=== PATIENT | female | born 1985 | race Caucasian/White ===

== ENCOUNTER → 2017-01-25 | Outpatient (REF) | payer OTHER ==
[2017-01-25 17:33] LABS: ALBUMIN 4.1 GM/DL (3.2-5.2); ALBUMIN/GLOBULIN RATIO 1.28 (1.00-1.93); ALKALINE PHOSPHATASE 72 U/L (45-117); ALT/SGPT 20 U/L (12-78); ANION GAP 7 MEQ/L (8-16); AST/SGOT 6 U/L (7-37); BILIRUBIN,TOTAL 0.3 MG/DL (0.2-1.0); BLOOD UREA NITROGEN 7 MG/DL (7-18); CALCIUM LEVEL 9.3 MG/DL (8.5-10.1); CARBON DIOXIDE LEVEL 29 MEQ/L (21-32); CHLORIDE LEVEL 104 MEQ/L (98-107); CHOLESTEROL LEVEL 165 MG/DL (<200); CREATININE FOR GFR 1.02 MG/DL (0.55-1.02); GLOMERULAR FILTRATION RATE > 60.0 (>60); GLUCOSE, FASTING 88 MG/DL (70-105); SODIUM LEVEL 140 MEQ/L (136-145); TOTAL PROTEIN 7.3 GM/DL (6.4-8.2); TRIGLYCERIDES LEVEL 71 MG/DL (<150)
[2017-01-25 17:36] LABS: BASO % 0.4 % (0.0-1.0); EOS # 0.2 10^3/uL (0.0-0.50); IMMATURE GRANULOCYTE % 0.4 % (0-0); LYMPH # 2.7 10^3/uL (1.5-4.5); MEAN CORPUSCULAR HEMOGLOBIN 28.2 pg (27.0-33.0); MEAN CORPUSCULAR HGB CONC 31.4 g/dl (32.0-36.5); MEAN CORPUSCULAR VOLUME 89.8 fl (80.0-96.0); MONO # 0.5 10^3/uL (0.0-0.8); MONO % 5.2 % (0.0-5.0); NEUTROPHILS # 6.6 10^3/uL (1.8-7.7); PLATELET COUNT, AUTOMATED 319 10^3/uL (150-450); RED CELL DISTRIBUTION WIDTH 14.2 % (11.5-14.5); WHITE BLOOD COUNT 10.1 10^3/uL (4.0-10.0)
== END ==
LOC: M LAB REF 16:04
PROVIDERS: ATTEND Nurse Practitioner Adult Health
DX: Z13.9 Encounter for screening, unspecified (principal)

== ENCOUNTER → 2017-02-23 | Outpatient (REF) | payer OTHER | LOC: M LAB REF 16:49 | PROVIDERS: ATTEND Advanced Practice Midwife | DX: Z12.4 Encounter for screening for malignant neoplasm of cervix (principal); R87.5 Abnormal microbiological findings in specimens from female genital organs; Z11.3 Encounter for screening for infections with a predominantly sexual mode of transmission ==

== ENCOUNTER → 2017-03-24 | Outpatient (CLI) | payer OTHER ==
[2017-03-24 11:46] LABS: CONTROL LINE HCG INT CTR LINE PRESENT; HCG, SERUM QUALITATIVE NEGATIVE (NEGATIVE)
== END ==
LOC: M LAB 11:13
DX: N91.2 Amenorrhea, unspecified (principal)
CPT/HCPCS: 84703

== ENCOUNTER → 2017-04-01 | Outpatient (REF) | payer OTHER | LOC: M LAB REF 13:08 | DX: N94.12 Deep dyspareunia (principal) ==

== ENCOUNTER → 2017-04-07 | Outpatient (CLI) | payer OTHER | LOC: M RAD 17:05 | DX: N94.12 Deep dyspareunia (principal); N83.201 Unspecified ovarian cyst, right side | CPT/HCPCS: 76856 ==

== ENCOUNTER 2018-01-09 19:55 | Emergency (ER) | payer OTHER ==
[2018-01-09] MEDS: NORCO 5/325MG TABLET (BULK FOR ED) PO (20:02)
== END 2018-01-09 20:06 | disposition home or self-care (01) ==
LOC: M ED 19:55
DX: K02.9 Dental caries, unspecified (principal); Z72.0 Tobacco use; Z79.899 Other long term (current) drug therapy
CPT/HCPCS: 99282

== ENCOUNTER 2018-05-19 07:25 | Emergency (ER) | payer OTHER ==
[~2018-05-19] VITALS: Ht 175.3 cm; Wt 92.5 kg
[~2018-05-19 07:25] MED LIST: CLINDAMYCIN; NAPR250T4 PO
[2018-05-19] MEDS ORDERED: VIT D (07:34)
[2018-05-19 08:06] LABS: BASO % 0.3 % (0.0-1.0); EOS # 0.2 10^3/uL (0.0-0.50); EOS % 1.4 % (0.0-3.0); HEMATOCRIT 42.2 % (36.0-47.0); LYMPH # 2.8 10^3/uL (1.5-4.5); LYMPH % 23.6 % (24.0-44.0); MEAN CORPUSCULAR HEMOGLOBIN 29.9 pg (27.0-33.0); MEAN CORPUSCULAR HGB CONC 33.2 g/dl (32.0-36.5); MONO # 0.9 10^3/uL (0.0-0.8); MONO % 7.6 % (0.0-5.0); NEUTROPHILS % 66.6 % (36.0-66.0); PLATELET COUNT, AUTOMATED 261 10^3/uL (150-450); RED BLOOD COUNT 4.69 10^6/uL (4.00-5.40); WHITE BLOOD COUNT 12.1 10^3/uL (4.0-10.0)
--- NOTE | 2018-05-19 09:12 | REP ---
FIRST TRIMESTER ULTRASOUND: Real-time sonographic evaluation is performed of the pelvis, using transabdominal and endovaginal technique. The uterus measures 9.9 x 5.9 x 6.9 cm. There is endometrial thickening up to 3.6 cm. Sac-like structure in the endometrial canal measures 6 mm in average diameter, which would correspond to an estimated gestational age of 5 weeks 2 days. No pole or yolk sac is seen within this sac. Right ovary measures 4.6 x 3.0 x 4.0 cm. There is a complex cystic structure in the right ovary 2.2 cm in diameter which may represent a complex corpus luteum. The left ovary measures 2.7 x 2.1 x 2.0 cm. There is no other evidence of adnexa mass. There is trace free fluid. Differential diagnosis would include very early intrauterine gestation, missed or ectopic . Suggest correlation with serial quantitative beta hCG valves and followup ultrasound as necessary. Electronically Signed by Cesar Rodríguez MD 05/22/2018 10:54 A
[2018-05-19] MEDS ORDERED: MICOCRE PV (09:53)
[2018-05-19] MEDS ORDERED: MACR100C43 PO (09:53)
[2018-05-19 09:57] LABS: CHLAMYDIA DNA AMPLIFICATION NEGATIVE (NEGATIVE); GC DNA AMPLIFICATION NEGATIVE (NEGATIVE)
[2018-05-19 10:12] VITALS: BP 107/54
== END 2018-05-19 10:13 | disposition home or self-care (01) ==
LOC: M ED 07:25
DX: Z32.01 Encounter for pregnancy test, result positive (principal); N39.0 Urinary tract infection, site not specified; B37.3 Candidiasis of vulva and vagina; F17.200 Nicotine dependence, unspecified, uncomplicated; Z88.0 Allergy status to penicillin; Z98.890 Other specified postprocedural states

== ENCOUNTER → 2018-05-26 | Outpatient (CLI) | payer OTHER ==
[~2018-05-26] MED LIST changes: +MACR100C43 PO; +MICOCRE PV; +VIT D
== END ==
LOC: M SMT 11:41
PROVIDERS: ATTEND Advanced Practice Midwife
DX: O20.0 Threatened abortion (principal)

== ENCOUNTER 2018-06-20 16:42 | Emergency (ER) | payer OTHER ==
[~2018-06-20] VITALS: Ht 175.3 cm; Wt 95.1 kg
[2018-06-20 16:43] VITALS: BP 105/60
[2018-06-20] MEDS ORDERED: PREN200C PO (17:09)
== END 2018-06-20 21:31 | disposition left against medical advice (07) ==
LOC: M ED 16:42
DX: Z53.21 Procedure and treatment not carried out due to patient leaving prior to being seen by health care provider (principal)

== ENCOUNTER → 2018-07-27 | Outpatient (REF) | payer OTHER ==
[~2018-07-27] MED LIST changes: +PREN200C PO
== END ==
LOC: M LAB REF 17:09
PROVIDERS: ATTEND Advanced Practice Midwife
DX: O09.522 Supervision of elderly multigravida, second trimester (principal); Z3A.00 Weeks of gestation of pregnancy not specified

== ENCOUNTER → 2018-08-24 | Outpatient (CLI) | payer OTHER ==
--- NOTE | 2018-08-25 09:03 | REP ---
Obstetric sonography: History: Supervision of . anatomy. Findings: Scanning through the gravid uterus demonstrates a viable single intrauterine gestation in a cephalic lie. motion is observed and heart rate is recorded at 131 beats per minute. Placenta is anterior grade 1 without evidence of previa or abruption. Amniotic fluid is subjectively normal. Closed cervical length measured transabdominally is 4.7 cm. No extrauterine abnormalities observed. Umbilical cord is seen draping across shoulders. No abnormality is observed. spine visualization and nose and lips visualization was less than optimally achieved due to position. Following additional anatomic structures are identified and felt to be sonographically unremarkable: cranium, choroid plexus, cavum, cerebellum posterior fossa, lungs, four-chamber heart with left and right ventricular outflow tract views, diaphragm, left-sided stomach, abdominal wall cord insertion, three-vessel umbilical cord, kidneys and bladder, upper and lower extremities. Biometry chart: BPD 4.0 cm 18 weeks 1 day Head circumference 15.8 cm 18 weeks 5 days Abdominal circumference 13.3 cm 18 weeks 5 days Femur length 3.0 cm 19 weeks 1 day Humeral length 2.8 cm 18 weeks 6 days HC/AC ratio normal 1.19, cephalic index 0.68 (0.70-0.86) estimated weight 262 grams, 0 pounds 9 ounces, 39th percentile for 19 weeks 1 day. Impression: Viable single intrauterine gestation 18 weeks 5 days by today's composite sonographic criteria. MARYANNE by today's sonography January 20, 2019. nose and lips and spine visualization were less than optimal due to position. Electronically Signed by Simeon Jefferson MD 08/25/2018 03:01 P
== END ==
LOC: M RAD 17:52
PROVIDERS: ATTEND Advanced Practice Midwife
DX: Z34.82 Encounter for supervision of other normal pregnancy, second trimester (principal)

== ENCOUNTER → 2018-11-03 | Outpatient (CLI) | payer OTHER ==
[2018-11-03 13:18] LABS: HEMATOCRIT 35.9 % (36.0-47.0); HEMOGLOBIN 11.8 g/dl (12.0-15.5); MEAN CORPUSCULAR HEMOGLOBIN 30.7 pg (27.0-33.0); MEAN CORPUSCULAR HGB CONC 32.9 g/dl (32.0-36.5); MEAN CORPUSCULAR VOLUME 93.5 fl (80.0-96.0); PLATELET COUNT, AUTOMATED 238 10^3/uL (150-450); RED BLOOD COUNT 3.84 10^6/uL (4.00-5.40); WHITE BLOOD COUNT 12.3 10^3/uL (4.0-10.0)
== END ==
LOC: M SMT 10:53
PROVIDERS: ATTEND Specialist
DX: Z34.82 Encounter for supervision of other normal pregnancy, second trimester (principal); Z3A.00 Weeks of gestation of pregnancy not specified

== ENCOUNTER → 2018-11-07 | Outpatient (CLI) | payer OTHER | LOC: M LAB 07:40 | PROVIDERS: ATTEND Specialist | DX: Z34.83 Encounter for supervision of other normal pregnancy, third trimester (principal); Z3A.00 Weeks of gestation of pregnancy not specified ==

== ENCOUNTER → 2018-12-11 | Outpatient (CLI) | payer OTHER ==
--- NOTE | 2018-12-11 20:21 | REP ---
Third trimester obstetric ultrasound: There is a single intrauterine N. There is movement and cardiac activity. The heart rate is 126 beats per minute. The placenta is anterior. There is no placenta previa or abruptio. The placenta is grade II. The amniotic fluid volume subjectively is normal. The amniotic fluid index is 10.7/8.0 - 24.9. Gestational age by today's ultrasound is 34 weeks 2 days/MARYANNE 01/20/2019. Gestational age by the first ultrasound is 34 weeks 2 days/MARYANNE 01/20/2019. Gestational age by LMP is 34 weeks 5 days/MARYANNE 01/17/2019. weight is 2445 grams/5 pounds, 6 ounces. This is the 44th percentile for 34 weeks 5 days. anatomy: On the combination of the two previous studies dated 08/24/2018 and 10/03/2018. All of the anatomy was previously visualized and was previously normal. On the study today, because of the gestational age, where only able to visualize the cranium, choroid plexus, cavum septum pellucidum, cerebellum, diaphragm, stomach, kidneys, bladder and spine. All of the structures are normal. The remainder of the anatomy was previously visualized and previously unremarkable. Umbilical cord Doppler assessment: S/D ratio 2.70 (2.30-3.30) Resistive Index 0.64 (0.59-0.75 Diastolic Velocity 17.2 (>10 cm/sec) Electronically Signed by Cesar Escobar MD 12/11/2018 08:12 P
== END ==
LOC: M RAD 16:43
PROVIDERS: ATTEND Obstetrics & Gynecology
DX: O24.410 Gestational diabetes mellitus in pregnancy, diet controlled (principal); Z3A.34 34 weeks gestation of pregnancy

== ENCOUNTER → 2018-12-18 | Outpatient (CLI) | payer OTHER ==
[~2018-12-18] MED LIST changes: +BUSPIRONE PO; +GLYB1TAB65 PO; +RANITIDINE PO; +SERT25TA85 PO; +[UNRECOGNIZED DRUG - OTHER] PO
--- NOTE | 2018-12-19 07:08 | REP ---
The third trimester obstetric ultrasound for well being: There is a single intrauterine gestation in a vertex presentation. The heart rate is 133 beats per minute. Gestational age by the first ultrasound is 35 weeks 2 days/MARYANNE 01/20/2019. Gestational age by LMP is 35 weeks 5 days/MARYANNE 01/17/2019. The amniotic fluid volume subjectively is oligohydramnios. The amniotic fluid index is 5.6 (7.8 - 24.9). biophysical profile: Breathing 2.0 Movement 2.0 Tone 2.0 AFV 2.0 Total 8.0 / 8.0 Impression: Oligohydramnios. Electronically Signed by Cesar Escobar MD 12/18/2018 02:58 P
== END ==
LOC: M RAD 14:00
PROVIDERS: ATTEND Advanced Practice Midwife
DX: O24.410 Gestational diabetes mellitus in pregnancy, diet controlled (principal)

== ENCOUNTER 2018-12-28 07:55 | Inpatient (IN) | payer OTHER ==
[2018-12-28] VITALS (8 sets, daily range): BP systolic 98–116; BP diastolic 55–67
[~2018-12-28] VITALS: Ht 175.3 cm; Wt 109.6 kg
[~2018-12-28 07:55] MED LIST changes: -BUSPIRONE PO; -GLYB1TAB65 PO; -RANITIDINE PO; -SERT25TA85 PO; -[UNRECOGNIZED DRUG - OTHER] PO
[2018-12-28] MEDS ORDERED: GLYB2.5T13 PO (08:25)
[2018-12-28] MEDS ORDERED: [UNRECOGNIZED DRUG - OTHER] PO (08:25)
[2018-12-28] MEDS ORDERED: RANITIDINE PO (08:25)
[2018-12-28] MEDS ORDERED: BUSPIRONE PO (08:25)
[2018-12-28] MEDS ORDERED: SERT25TA85 PO (08:25)
[2018-12-28] MEDS ORDERED: LACTATED RINGER'S 1000 ML IV STA (08:49)
[2018-12-28] MEDS ORDERED: LR 1,000 ML IV SCH (08:49)
[2018-12-28] MEDS ORDERED: INSULIN HUMAN REGULAR 100 UNITS in NS 99 ML IV SCH ×2 (09:00→15:00)
[2018-12-28 09:30] LABS: HEMATOCRIT 36.8 % (36.0-47.0); HEMOGLOBIN 11.7 g/dl (12.0-15.5); MEAN CORPUSCULAR HEMOGLOBIN 28.6 pg (27.0-33.0); MEAN CORPUSCULAR HGB CONC 31.8 g/dl (32.0-36.5); PLATELET COUNT, AUTOMATED 263 10^3/uL (150-450); RED BLOOD COUNT 4.09 10^6/uL (4.00-5.40); WHITE BLOOD COUNT 10.1 10^3/uL (4.0-10.0)
[2018-12-28] MEDS: miSOPROStol 50 MCG 1/2 TAB (S0191) SL SCH ×3 (10:18→21:17)
[2018-12-28] MEDS: NS 1,000 ML IV SCH (13:36)
[2018-12-28] MEDS: INSULIN HUMAN REGULAR 100 UNITS in NS 99 ML IV SCH (14:52)
[2018-12-28] MEDS ORDERED: OXYTOCIN 30 UNITS IN 0.9% NaCl 500ML IV BAG (J2590) As Ordered ONE (14:57)
[2018-12-28] MEDS: INSULIN IV RATE CHANGE DOCUMENTATION ML/HR XX SCH ×2 (15:32→19:25)
[2018-12-29] VITALS (35 sets, daily range): BP systolic 96–134; BP diastolic 53–86
[2018-12-29] MEDS: miSOPROStol 50 MCG 1/2 TAB (S0191) SL SCH ×2 (01:44→07:10)
[2018-12-29] MEDS: NS 1,000 ML IV SCH ×2 (05:26→14:54)
--- NOTE | 2018-12-29 08:11 | IPNPDOC ---
Text Note Date of Service The patient was seen on 12/29/18. NOTE Comfortable at present Miso #5 given 0710 UC irregular, mild FH 130, Cat I SVE 2/50/-3, Cooks catheter 60/40 inserted. Start pitocin after 4 hrs VS,Fishbone, I+O VS, Fishbone, I+O Laboratory Tests 12/28/18 09:19 Vital Signs Date Time Temp Pulse Resp B/P (MAP) Pulse Ox O2 Delivery O2 Flow Rate FiO2 12/29/18 07:19 98.8 68 18 109/72 (84) I&O- Last 24 Hours up to 6 AM 12/29/18 06:00 Intake Total 2120 ml Output Total 2750 ml Balance -630 ml Madeline Brice CNM Dec 29, 2018 08:11
[2018-12-29] MEDS: INSULIN HUMAN REGULAR 100 UNITS in NS 99 ML IV SCH ×3 (09:33→18:31)
[2018-12-29] MEDS ORDERED: PROMETHAZINE INJ 25 MG/ML VIAL (J2550) IV ONE (10:15)
[2018-12-29] MEDS ORDERED: BUTORPHANOL 2 MG/ML INJ (J0595) IV ONE (10:15)
[2018-12-29] MEDS ORDERED: LR 1,000 ML IV SCH (13:17)
[2018-12-29] MEDS ORDERED: OXYTOCIN DRIP 30 UNITS in IV 1 EA IV SCH (13:30)
--- NOTE | 2018-12-29 13:31 | IPNPDOC ---
Text Note Date of Service The patient was seen on 12/29/18. NOTE Bulb out in toilet, moderate bloody show FH 125, Cat I UC Q 5 minutes, mild SVE /-3 Start pitocin. Pt plans epidural Anticipate NSVB VS,Fishbone, I+O VS, Fishbone, I+O Vital Signs Date Time Temp Pulse Resp B/P (MAP) Pulse Ox O2 Delivery O2 Flow Rate FiO2 12/29/18 11:01 98.6 74 16 111/74 (86) I&O- Last 24 Hours up to 6 AM 12/29/18 06:00 Intake Total 2120 ml Output Total 2750 ml Balance -630 ml Madeline Brice CNM Dec 29, 2018 13:31
[2018-12-29] MEDS ORDERED: FENTANYL 2MCG/ML ROPIVACAINE 0.2% IN 0.9% NACL 100ML IVBAG As Ordered ONE (20:04)
[2018-12-29] MEDS ORDERED: NALOXONE INJ 0.4 MG/1 ML VIAL (J2310) IV PRN (20:30)
[2018-12-29] MEDS ORDERED: EPIDURAL COMMENT XX SCH (20:30)
[2018-12-29] MEDS ORDERED: REFRIGERATOR IV KEYS XX PRN (20:30)
[2018-12-29] MEDS ORDERED: ONDANSETRON 4MG/2ML VIAL (J2405) IV PRN (20:30)
[2018-12-29] MEDS ORDERED: FENTANYL/ROPIVACAINE/NACL BAG 100 ML EPIDURAL SCH (20:30)
[2018-12-29] MEDS ORDERED: LACTATED RINGER'S 1000 ML IV PRN (20:30)
[2018-12-29] MEDS ORDERED: ePHEDrine SULFATE 25 MG/5 ML(5MG/ML) SYRINGE IV PRN (20:30)
[2018-12-29] MEDS ORDERED: EPIDURAL/PCA KEYS XX PRN (20:30)
[2018-12-29] MEDS ORDERED: diphenhydrAMINE INJ 50MG/ML VIAL (J1200) IV PRN (20:30)
--- NOTE | 2018-12-29 21:20 | IPNPDOC ---
Text Note Date of Service The patient was seen on 12/29/18. NOTE Comfortable with epidural Pitocin @ 8mu FH 155, Cat I, sporadic audible arrythmia UC Q 2-3 minutes x 60 seconds SVE /50/-2, AROM large amount clear fluid FSE placed to more effectively monitor FH Anticipate NSVB VS,Fishbone, I+O VS, Fishbone, I+O Vital Signs Date Time Temp Pulse Resp B/P (MAP) Pulse Ox O2 Delivery O2 Flow Rate FiO2 12/29/18 18:36 98.3 90 16 113/68 (83) I&O- Last 24 Hours up to 6 AM 12/29/18 06:00 Intake Total 2120 ml Output Total 2750 ml Balance -630 ml Madeline Brice CNM Dec 29, 2018 21:20
--- NOTE | 2018-12-29 22:00 | IPNPDOC ---
Text Note Date of Service The patient was seen on 12/29/18. NOTE Reviewed strip with Dr Valeznuela. Audible, irregular FH arrythmia with return to baseline with Cat I tracing FSE removed per consultation. Continue IOL with close observation of FH VS,Fishbone, I+O VS, Fishbone, I+O Vital Signs Date Time Temp Pulse Resp B/P (MAP) Pulse Ox O2 Delivery O2 Flow Rate FiO2 12/29/18 18:36 98.3 90 16 113/68 (83) I&O- Last 24 Hours up to 6 AM 12/29/18 06:00 Intake Total 2120 ml Output Total 2750 ml Balance -630 ml Madeline Brice CNM Dec 29, 2018 22:00
--- NOTE | 2018-12-29 22:46 | IPNPDOC ---
Text Note Date of Service The patient was seen on 12/29/18. NOTE Dr Valenzuela in to evaluate FH arrythmia Audible accelerations and movement OK to continue pitocin and IOL at this time. VS,Fishbone, I+O VS, Fishbone, I+O Vital Signs Date Time Temp Pulse Resp B/P (MAP) Pulse Ox O2 Delivery O2 Flow Rate FiO2 12/29/18 18:36 98.3 90 16 113/68 (83) I&O- Last 24 Hours up to 6 AM 12/29/18 05:59 Intake Total 2120 ml Output Total 2750 ml Balance -630 ml Madeline Brice CNM Dec 29, 2018 22:46
[2018-12-30] VITALS (14 sets, daily range): BP systolic 102–130; BP diastolic 53–80
[2018-12-30] MEDS ORDERED: DIBUCAINE 1% OINTMENT 30GM TOP PRN (04:15)
[2018-12-30] MEDS ORDERED: METHYLERGONOVINE MALEATE 0.2 MG TAB PO PRN (04:15)
[2018-12-30] MEDS ORDERED: ACETAMINOPHEN 500 MG TAB PO PRN (04:15)
[2018-12-30] MEDS ORDERED: DOCUSATE SODIUM 100 MG CAP PO PRN (04:15)
[2018-12-30] MEDS ORDERED: IBUPROFEN 800 MG TAB PO PRN (04:15)
[2018-12-30] MEDS ORDERED: MOM 30ML SUSPENSION UDC PO PRN (04:15)
[2018-12-30] MEDS ORDERED: ACETAMINOPHEN TAB 650MG DOSE (2X325MG) PO PRN (04:15)
[2018-12-30] MEDS ORDERED: MEASLES,MUMPS,RUBELLA VACCINE INJ (MMR-II) (90707) SC SCH (04:15)
[2018-12-30] MEDS ORDERED: RHOGAM 300 MCG (1500 IU) INJ (J2790) IM SCH (04:15)
--- NOTE | 2018-12-30 04:23 | DNPDOC ---
[facility] Delivery Note Delivery Note DATE OF DELIVERY: 12/30/2018 PREDELIVERY DIAGNOSIS: 37-2/7 weeks' gestation and labor. POST DELIVERY DIAGNOSIS: Delivered. PROCEDURE: Spontaneous vaginal delivery. Provider: Madeline Brice CNM ANESTHESIA: Epidural. ESTIMATED BLOOD LOSS:. 500 mL. FINDINGS: 7 pound 4 ounce, 3300 g male , Score, 8/, 9, no nuchal cord. Large-loop occult cord noted at delivery DELIVERY SUMMARY: Patient is a 33-year-old 8 now para 4 -1 -3-5 who was admitted to labor and delivery for. Induction of labor due to A2 gestational diabetes. She received misoprostol, Pitocin augmentation and Cook's catheter. She utilized an epidural for labor coping. Artificial rupture of membranes 2110, large amount of clear fluid. Labor was complicated by heart arrhythmias. Dr. Valenzuela was present in the building and aware. Fully dilated 0344. Viable male delivered ELANA with large-loop of occult cord noted at delivery 0351. Spontaneous respirations with stimulation and transitioned on maternal abdomen. Cord gases were obtained and results are pending. Cord doubly clamped and cut by the patient herself under my direction once pulsations ceased. Placenta delivered Flor intact with a three-vessel cord at 0402. Fundus firmed with massage and IV Pitocin bolus. Cervix, vagina and perineum inspected, noted to be intact. Estimated blood loss 500 mL. Sponge, sharp and instrument count correct. Parents are naming their son, Harshad. Madeline Brice CNM Dec 30, 2018 04:23
[2018-12-30 04:27] LABS: CORD GAS ABE A -2.3; CORD GAS ABE V -2.9; CORD GAS HCO3 V 23.1 MEQ/L; CORD GAS O2 SAT A 45.4 %; CORD GAS O2 SAT V 67.2 %; CORD GAS PCO2 A 52.5 mmHg; CORD GAS PCO2 V 44.5 mmHg; CORD GAS PH A 7.295 UNITS; CORD GAS PH V 7.333 UNITS; CORD GAS PO2 V 27.4 mmHg; CORD GAS SBC A 21.4 MEQ/L; CORD GAS SBC V 21.4 MEQ/L; CORD GAS TCO2 A 26.6 MEQ/L; CORD GAS TCO2 V 24.5 MEQ/L
[2018-12-30] MEDS: PRENATAL VITAMINS CHEWABLE TABLET PO SCH (08:58)
[2018-12-30] MEDS: IBUPROFEN 600 MG TAB PO PRN ×2 (09:00→19:21)
[2018-12-30] MEDS: SERTRALINE HCL 25 MG TABLET PO SCH (09:00)
[2018-12-31 05:45] VITALS: BP 128/61
[2018-12-31] MEDS: SERTRALINE HCL 25 MG TABLET PO SCH (08:38)
[2018-12-31] MEDS: PRENATAL VITAMINS CHEWABLE TABLET PO SCH (08:38)
[2018-12-31] MEDS ORDERED: IBUP-1022 PO (10:03)
== END 2018-12-31 14:40 | disposition home or self-care (01) | DRG 560 ==
LOC: M LDI 07:55 → M OBS 12-30 06:20
PROVIDERS: ADMIT Obstetrics & Gynecology; ATTEND Obstetrics & Gynecology
PROC: 10E0XZZ Delivery of Products of Conception, External Approach (ICD-10-PCS; principal; 2018-12-30)
PROC: 10907ZC Drainage of Amniotic Fluid, Therapeutic from Products of Conception, Via Natural or Artificial Opening (ICD-10-PCS; 2018-12-30)
PROC: 3E0DXGC Introduction of Other Therapeutic Substance into Mouth and Pharynx, External Approach (ICD-10-PCS; 2018-12-30)
DX: O24.425 Gestational diabetes mellitus in childbirth, controlled by oral hypoglycemic drugs (principal); Z37.0 Single live birth; Z3A.37 37 weeks gestation of pregnancy; O41.03X0 Oligohydramnios, third trimester, not applicable or unspecified; O76 Abnormality in fetal heart rate and rhythm complicating labor and delivery

== ENCOUNTER → 2019-01-05 | Outpatient (REF) | payer OTHER ==
[~2019-01-05] MED LIST changes: +BUSPIRONE PO; +GLYB2.5T13 PO; +IBUP-1022 PO; +RANITIDINE PO; +SERT25TA85 PO; +[UNRECOGNIZED DRUG - OTHER] PO
== END ==
LOC: M LAB REF 14:41
PROVIDERS: ATTEND Otolaryngology
DX: H60.313 Diffuse otitis externa, bilateral (principal)

== ENCOUNTER → 2019-03-20 | Outpatient (REF) | payer OTHER, MEDICAID ==
[2019-03-20 19:56] LABS: CHLAMYDIA DNA AMPLIFICATION NEGATIVE (NEGATIVE); GC DNA AMPLIFICATION NEGATIVE (NEGATIVE)
== END ==
LOC: M SFHCWAGY 16:49
PROVIDERS: ATTEND Advanced Practice Midwife
DX: Z30.431 Encounter for routine checking of intrauterine contraceptive device (principal)

== ENCOUNTER → 2020-03-10 | Outpatient (REF) | payer OTHER ==
[2020-03-10 17:32] LABS: BASO # 0.1 10^3/uL (0.0-0.2); BASO % 0.5 % (0.0-1.0); EOS # 0.1 10^3/uL (0.0-0.5); EOS % 1.4 % (0.0-3.0); HEMOGLOBIN 12.4 g/dl (12.0-15.5); LYMPH # 2.6 10^3/uL (1.5-5.0); LYMPH % 28.2 % (24.0-44.0); MEAN CORPUSCULAR HEMOGLOBIN 27.4 pg (27.0-33.0); MEAN CORPUSCULAR VOLUME 88.3 fl (80.0-96.0); MONO # 0.6 10^3/uL (0.0-0.8); MONO % 6.2 % (0.0-5.0); NEUTROPHILS # 5.9 10^3/uL (1.5-8.5); NEUTROPHILS % 63.4 % (36.0-66.0); PLATELET COUNT, AUTOMATED 293 10^3/uL (150-450); RED BLOOD COUNT 4.53 10^6/uL (4.00-5.40); WHITE BLOOD COUNT 9.4 10^3/uL (4.0-10.0)
[2020-03-10 18:14] LABS: ALBUMIN 3.6 GM/DL (3.2-5.2); BILIRUBIN,TOTAL 0.4 MG/DL (0.2-1.0); CALCIUM LEVEL 8.8 MG/DL (8.5-10.1); CREATININE FOR GFR 1.13 MG/DL (0.55-1.30); POTASSIUM SERUM 4.1 MEQ/L (3.5-5.1); THYROID STIMULATING HORMONE 2.08 uIU/ML (0.358-3.740); TOTAL PROTEIN 6.9 GM/DL (6.4-8.2)
== END ==
LOC: M LAB REF 16:29
PROVIDERS: ATTEND Physician Assistant
DX: R53.83 Other fatigue (principal)

== ENCOUNTER → 2020-05-08 | Outpatient (REF) | payer OTHER ==
[~2020-05-08] MED LIST changes: +NAPR-849 PO; -NAPR250T4 PO
[2020-05-08 18:15] LABS: ALT/SGPT 19 U/L (12-78); BILIRUBIN,TOTAL 0.4 MG/DL (0.2-1.0); BLOOD UREA NITROGEN 13 MG/DL (7-18); CALCIUM LEVEL 9.1 MG/DL (8.5-10.1); CARBON DIOXIDE LEVEL 28 MEQ/L (21-32); CHLORIDE LEVEL 105 MEQ/L (98-107); CREATININE FOR GFR 0.96 MG/DL (0.55-1.30); GLOMERULAR FILTRATION RATE > 60.0 (>60); GLUCOSE, FASTING 92 MG/DL (70-100); POTASSIUM SERUM 4.6 MEQ/L (3.5-5.1); SODIUM LEVEL 137 MEQ/L (136-145); TOTAL PROTEIN 7.4 GM/DL (6.4-8.2)
== END ==
LOC: M LAB REF 16:17
PROVIDERS: ATTEND Physician Assistant
DX: R94.4 Abnormal results of kidney function studies (principal)

== ENCOUNTER 2020-11-23 04:38 | Emergency (ER) | payer OTHER ==
[~2020-11-23] VITALS: Ht 172.7 cm; Wt 109.0 kg
[2020-11-23] MEDS ORDERED: cefTRIAXone SOD 1 GM in D5W MINI-BAG PLUS 50 ML IV ONE (07:20)
[2020-11-23] MEDS ORDERED: NS 1,000 ML IV ONE (07:20)
[2020-11-23 07:30] LABS: BASO % 0.3 % (0.0-1.0); EOS # 0.1 10^3/uL (0.0-0.5); EOS % 0.3 % (0.0-3.0); HEMATOCRIT 43.5 % (36.0-47.0); HEMOGLOBIN 14.1 g/dl (12.0-15.5); LYMPH # 1.8 10^3/uL (1.5-5.0); LYMPH % 11.3 % (24.0-44.0); MEAN CORPUSCULAR HGB CONC 32.4 g/dl (32.0-36.5); MEAN CORPUSCULAR VOLUME 86.5 fl (80.0-96.0); MONO # 0.9 10^3/uL (0.0-0.8); MONO % 6.1 % (2.0-8.0); NEUTROPHILS # 12.7 10^3/uL (1.5-8.5); NEUTROPHILS % 81.5 % (36.0-66.0); PLATELET COUNT, AUTOMATED 291 10^3/uL (150-450); RED BLOOD COUNT 5.03 10^6/uL (4.00-5.40); WHITE BLOOD COUNT 15.5 10^3/uL (4.0-10.0)
[2020-11-23] MEDS ORDERED: KETOROLAC 30 MG/ML 1ML VIAL IV ONE (07:30)
[2020-11-23] MEDS ORDERED: CIPR-249 PO (08:35)
[2020-11-23] MEDS ORDERED: PYRI1TAB5 PO (08:35)
[2020-11-23 08:56] VITALS: BP 106/58
== END 2020-11-23 08:55 | disposition home or self-care (01) ==
LOC: M ED 04:38
DX: N10 Acute pyelonephritis (principal); Z88.0 Allergy status to penicillin; Z88.6 Allergy status to analgesic agent
CPT/HCPCS: 80047; 81001; 84702; 85025; 87088; 87186; 96361; 96374; 96375; 99284; J0696; J1885

== ENCOUNTER → 2023-04-06 | Outpatient (CLI) | payer OTHER ==
[~2023-04-06] MED LIST changes: +CIPR-249 PO; +GLYB-148 PO; -GLYB2.5T13 PO; +PYRI1TAB5 PO
== END ==
LOC: M WHC 13:16
PROVIDERS: ATTEND Nurse Practitioner Family
DX: N63.13 Unspecified lump in the right breast, lower outer quadrant (principal); N63.22 Unspecified lump in the left breast, upper inner quadrant

== ENCOUNTER → 2023-04-22 | Outpatient (REF) | payer OTHER | LOC: M SFHCWAGY 11:45 | PROVIDERS: ATTEND Nurse Practitioner Family | DX: Z12.4 Encounter for screening for malignant neoplasm of cervix (principal) ==

== ENCOUNTER → 2023-08-05 | Outpatient (REF) | payer OTHER, MEDICAID ==
[2023-08-05 17:03] LABS: HEMATOCRIT 40.8 % (36.0-47.0); HEMOGLOBIN 12.9 g/dl (12.0-15.5); MEAN CORPUSCULAR HEMOGLOBIN 28.5 pg (27.0-33.0); MEAN CORPUSCULAR HGB CONC 31.6 g/dl (32.0-36.5); MEAN CORPUSCULAR VOLUME 90.3 fl (80.0-96.0); PLATELET COUNT, AUTOMATED 280 10^3/uL (150-450); RED BLOOD COUNT 4.52 10^6/uL (4.00-5.40); WHITE BLOOD COUNT 7.3 10^3/uL (4.0-10.0)
[2023-08-05 17:34] LABS: ALBUMIN 3.7 G/DL (3.2-5.2); ALKALINE PHOSPHATASE 71 U/L (46-116); ALT/SGPT 16 U/L (7.0-40); AST/SGOT < 8 U/L (<34); BILIRUBIN,TOTAL 0.5 MG/DL (0.3-1.2); BLOOD UREA NITROGEN 13 MG/DL (9-23); CALCIUM LEVEL 8.9 MG/DL (8.5-10.1); CARBON DIOXIDE LEVEL 27 MMOL/L (20-31); CHLORIDE LEVEL 108 MMOL/L (98-107); CHOLESTEROL LEVEL 200 MG/DL (<200); CHOLESTEROL RISK RATIO 3.19 (<5); CREATININE FOR GFR 0.85 MG/DL (0.55-1.30); GLOMERULAR FILTRATION RATE > 60.0 (>58); GLUCOSE, FASTING 83 MG/DL (60-100); HDL CHOLESTEROL 62.6 MG/DL (>40); LDL CHOLESTEROL 113.4 MG/DL (<100); NON-HDL-C 137.4 MG/DL; POTASSIUM SERUM 4.7 MMOL/L (3.5-5.1); SODIUM LEVEL 141 MMOL/L (136-145); TOTAL PROTEIN 6.4 G/DL (5.7-8.2); TRIGLYCERIDES LEVEL 120 MG/DL (<150)
[2023-08-05 17:35] LABS: TOTAL 25(OH) VITAMIN D 17.6 NG/ML (20.0-100.0)
== END ==
LOC: M LAB REF 16:25
PROVIDERS: ATTEND Physician Assistant
DX: E55.9 Vitamin D deficiency, unspecified (principal); F41.8 Other specified anxiety disorders; E66.9 Obesity, unspecified; Z13.1 Encounter for screening for diabetes mellitus; Z13.220 Encounter for screening for lipoid disorders; Z68.36 Body mass index [BMI] 36.0-36.9, adult

== ENCOUNTER → 2023-10-17 | Outpatient (CLI) | payer OTHER | LOC: M LAB 13:44 | PROVIDERS: ATTEND Physician Assistant | DX: E55.9 Vitamin D deficiency, unspecified (principal) ==

== ENCOUNTER → 2023-10-20 | Outpatient (CLI) | payer OTHER | LOC: M WHC 09:03 | PROVIDERS: ATTEND Nurse Practitioner Family | DX: N63.13 Unspecified lump in the right breast, lower outer quadrant (principal) ==

== ENCOUNTER → 2024-03-19 | Outpatient (CLI) | payer OTHER ==
[2024-03-19 11:23] LABS: APPEARANCE, URINE CLEAR (CLEAR); BACTERIA, URINE AUTO 1+ (NEGATIVE); BILIRUBIN, URINE AUTO NEGATIVE (NEGATIVE); BLOOD, URINE BLOOD 1+ (NEGATIVE); COLOR, URINE YELLOW (YELLOW); GLUCOSE, URINE (UA) AUTO NEGATIVE (NEGATIVE); KETONE, URINE AUTO NEGATIVE (NEGATIVE); LEUKOCYTE ESTERASE, URINE AUTO NEGATIVE (NEGATIVE); MUCUS, URINE SMALL (NEGATIVE); NITRITE, URINE AUTO POSITIVE (NEGATIVE); PROTEIN, URINE AUTO NEGATIVE (NEGATIVE); RBC, URINE AUTO 1 /HPF (0-3); SPECIFIC GRAVITY URINE AUTO 1.012 (1.002-1.035); SQUAMOUS EPITHELIAL CELL UR AU 1 /HPF (0-6); UROBILINOGEN, URINE AUTO 0.2 mg/dL (0.0-2.0); WBC, URINE AUTO 4 /HPF (0-3)
== END ==
LOC: M RAD 10:12
PROVIDERS: ATTEND Physician Assistant
DX: R10.9 Unspecified abdominal pain (principal)

== ENCOUNTER → 2024-05-29 | Outpatient (CLI) | payer OTHER | LOC: M WHC 14:23 | PROVIDERS: ATTEND Nurse Practitioner Family | DX: N63.10 Unspecified lump in the right breast, unspecified quadrant (principal); N63.22 Unspecified lump in the left breast, upper inner quadrant ==

== ENCOUNTER → 2024-06-01 | Outpatient (REF) | payer OTHER ==
[2024-06-01 13:04] LABS: HEMATOCRIT 41.7 % (36.0-47.0); HEMOGLOBIN 13.2 g/dl (12.0-15.5); MEAN CORPUSCULAR HGB CONC 31.7 g/dl (32.0-36.5); MEAN CORPUSCULAR VOLUME 88.5 fl (80.0-96.0); PLATELET COUNT, AUTOMATED 307 10^3/uL (150-450); RED BLOOD COUNT 4.71 10^6/uL (4.00-5.40); WHITE BLOOD COUNT 7.8 10^3/uL (4.0-10.0)
[2024-06-01 13:06] LABS: ALBUMIN 3.7 G/DL (3.2-5.2); ALKALINE PHOSPHATASE 74 U/L (35-104); ALT/SGPT 22 U/L (7.0-40); AST/SGOT 10 U/L (<34); BILIRUBIN,TOTAL 0.4 MG/DL (0.3-1.2); BLOOD UREA NITROGEN 17 MG/DL (9-23); CALCIUM LEVEL 8.9 MG/DL (8.5-10.1); CARBON DIOXIDE LEVEL 29 MMOL/L (20-31); CHLORIDE LEVEL 105 MMOL/L (98-107); CHOLESTEROL LEVEL 223 MG/DL (<200); CHOLESTEROL RISK RATIO 3.54 (<5); CREATININE FOR GFR 0.79 MG/DL (0.55-1.30); GLOMERULAR FILTRATION RATE > 60.0 (>58); GLUCOSE, FASTING 107 MG/DL (60-100); HDL CHOLESTEROL 62.9 MG/DL (>40); LDL CHOLESTEROL 132.1 MG/DL (<100); NON-HDL-C 160.1 MG/DL; POTASSIUM SERUM 4.5 MMOL/L (3.5-5.1); SODIUM LEVEL 140 MMOL/L (136-145); TOTAL PROTEIN 6.9 G/DL (5.7-8.2); TRIGLYCERIDES LEVEL 140 MG/DL (<150)
[2024-06-01 13:26] LABS: HEMOGLOBIN A1c 5.7 % (4.0-6.0)
== END ==
LOC: M LAB REF 12:02
PROVIDERS: ATTEND Physician Assistant
DX: E66.9 Obesity, unspecified (principal); Z68.38 Body mass index [BMI] 38.0-38.9, adult; Z86.32 Personal history of gestational diabetes

== ENCOUNTER → 2024-07-25 | Outpatient (CLI) | payer OTHER | LOC: M WHC 13:07 | PROVIDERS: ATTEND Surgery | DX: N63.14 Unspecified lump in the right breast, lower inner quadrant (principal) ==

== ENCOUNTER → 2024-12-03 | Outpatient (CLI) | payer OTHER ==
[~2024-12-03] MED LIST changes: -IBUP-1022 PO; +IBUP600T42 PO; +PROHANCE 279.3MG/ML 15ML VIAL ONE; +PROHANCE 279.3MG/ML 5ML VIAL ONE
== END ==
LOC: M PLAIMG 11:08
PROVIDERS: ATTEND Surgery
DX: Z12.39 Encounter for other screening for malignant neoplasm of breast (principal); Z80.3 Family history of malignant neoplasm of breast; Z80.41 Family history of malignant neoplasm of ovary; N60.11 Diffuse cystic mastopathy of right breast; N60.12 Diffuse cystic mastopathy of left breast
CPT/HCPCS: 77049; A9576